=== PATIENT | male | born 1980 ===

== ENCOUNTER 2019-01-19 23:49 | Emergency (ER) | payer OTHER ==
[2019-01-20] VITALS: BP 119/65
[2019-01-20] MEDS ORDERED: Ketorolac 30 MG/ML SDV IM ONE (01:06)
[2019-01-20 01:09] LABS: ANION GAP 12.5; CHLORIDE,CL 103 mmol/L (101-111); SODIUM,NA 136 mmol/L (135-145)
[2019-01-20] MEDS ORDERED: Cyclobenzaprine 10 MG Tab PO ONE (01:09)
--- NOTE | 2019-01-20 01:27 | EDM.PDOC ---
ED HPI GENERAL MEDICAL PROBLEM - General Chief Complaint: Chest Pain Stated Complaint: RT RIB PAIN Time Seen by Provider: 01/20/19 00:10 Source of Information: Reports: Patient History Limitations: Reports: No Limitations - History of Present Illness INITIAL COMMENTS - FREE TEXT/NARRATIVE: ED with c/o pain to right lateral chest worse with movement, radiates around. Also pain right shoulder. Shoulder started yesterday, chest pain tonight. States he is doing a "push up challenge" Is up to 300 pushups today and was doing one handed pushups with left hand. No fever no cough. No sweating, no nausea. Right Chest Pain Score (Numeric/FACES): 4 - Related Data Allergies Allergy/AdvReac Type Severity Reaction Status Date / Time hydrocodone bitartrate Allergy Itching Verified 01/20/19 00:01 [From Lorcet (hydrocodone)] morphine Allergy Itching Verified 01/20/19 00:01 propoxyphene napsylate Allergy Itching Verified 01/20/19 00:01 [From Darvocet-N] Home Meds: Home Meds . [No Known Home Meds] 01/20/19 [History] Past Medical History HEENT History: Reports: Hard of Hearing Other HEENT History: has hearing aids but does not wear them Cardiovascular History: Reports: None Respiratory History: Reports: Other (See Below) Other Respiratory History: pneumonia Gastrointestinal History: Reports: GERD Genitourinary History: Reports: None Musculoskeletal History: Reports: Fracture Neurological History: Reports: None Psychiatric History: Reports: Emotional Problems Endocrine/Metabolic History: Reports: None Hematologic History: Reports: None Immunologic History: Reports: None Oncologic (Cancer) History: Reports: None Dermatologic History: Reports: None - Infectious Disease History Infectious Disease History: Reports: Chicken Pox, Shingles - Past Surgical History Head Surgeries/Procedures: Reports: None HEENT Surgical History: Reports: Adenoidectomy, Myringotomy w Tube(s), Tonsillectomy GI Surgical History: Reports: Hernia Repair/Other Musculoskeletal Surgical History: Reports: ORIF, Other (See Below) - History Comment History Comment: no etoh Social & Family History - Family History Family Medical History: Noncontributory - Tobacco Use Smoking Status *Q: Never Smoker - Caffeine Use Caffeine Use: Reports: Energy Drinks - Recreational Drug Use Recreational Drug Use: No ED ROS GENERAL - Review of Systems Review Of Systems: ROS reveals no pertinent complaints other than HPI. ED EXAM, GENERAL - Physical Exam Exam: See Below Exam Limited By: No Limitations General Appearance: Alert, Anxious, Mild Distress (with movement) Eye Exam: Bilateral Eye: EOMI Ears: Normal External Exam, Normal TMs Nose: Normal Inspection Throat/Mouth: Normal Inspection Head: Atraumatic, Normocephalic Neck: Normal Inspection, Full Range of Motion Respiratory/Chest: No Respiratory Distress, Lungs Clear, Normal Breath Sounds, Other (point tenderness right mid lateral chest, mild splinting with deep breathing. ). No: Crackles, Rhonchi, Wheezing Cardiovascular: Normal Peripheral Pulses, Regular Rate, Rhythm GI/Abdominal: Normal Bowel Sounds, Soft Back Exam: Full Range of Motion Extremities: Limited Range of Motion (slight decrease external rotation of right shoulder no deformity, mild crepitus of joint. ) Neurological: Alert, Oriented, CN II-XII Intact, Normal Cognition, Normal Gait Psychiatric: Normal Affect Skin Exam: Warm, Dry, Intact, Normal Color Course - Vital Signs Last Recorded V/S: Last Vital Signs Temp 98.0 F 01/19/19 23:57 Pulse 79 01/19/19 23:57 Resp 18 01/19/19 23:57 BP 119/65 01/19/19 23:57 Pulse Ox 94 L 01/19/19 23:57 - Orders/Labs/Meds Orders: Active Orders 24 hr Category Date Time Status EKG 12 Lead [EKG Documentation Completion] [RC] URGENT Care 01/20/19 00:37 Active CXR [Chest 1V Frontal] [CR] Urgent Exams 01/20/19 00:38 Taken Labs: Laboratory Tests 01/20/19 01/20/19 01/20/19 Range/Units 00:43 00:43 00:43 WBC 7.1 (5.0-10.0) 10^3/uL RBC 5.25 (4.6-6.2) 10^6/uL Hgb 15.7 (14.0-18.0) g/dL Hct 45.9 (40.0-54.0) % MCV 87.4 (80-100) fL MCH 29.9 (27.0-34.0) pg MCHC 34.2 (33.0-35.0) g/dL Plt Count 240 (150-450) 10^3/uL Neut % (Auto) 44.0 (42.2-75.2) % Lymph % (Auto) 36.3 (20.5-50.1) % [place] % (Auto) 15.8 H (2-8) % Eos % (Auto) 2.1 (1.0-3.0) % Baso % (Auto) 1.8 H (0.0-1.0) % D-Dimer, Quantitative < 100 (0-400) ng/mL Sodium 136 (135-145) mmol/L Potassium 3.5 L (3.6-5.0) mmol/L Chloride 103 (101-111) mmol/L Carbon Dioxide 24.0 (21.0-31.0) mmol/L Anion Gap 12.5 BUN 13 (7-18) mg/dL Creatinine 1.0 (0.6-1.3) mg/dL Est Cr Clr Drug Dosing 98.19 mL/min Estimated GFR (MDRD) > 60 BUN/Creatinine Ratio 13.00 Glucose 106 H (74-105) mg/dL Calcium 8.5 (8.4-10.2) mg/dl Total Bilirubin 0.7 (0.2-1.0) mg/dL AST 25 (10-42) IU/L ALT 39 (10-60) IU/L Alkaline Phosphatase 58 (42-121) IU/L Troponin I < 0.02 (0.00-0.02) ng/ml Total Protein 6.4 L (6.7-8.2) g/dl Albumin 3.8 (3.2-5.5) g/dl Globulin 2.6 Albumin/Globulin Ratio 1.46 Meds: Medications Discontinued Medications Generic Name Dose Route Start Last Admin Trade Name Freq PRN Reason Stop Dose Admin Cyclobenzaprine HCl 10 mg 01/20/19 01:09 01/20/19 01:14 Flexeril PO 01/20/19 01:10 10 mg ONETIME ONE Administration Ketorolac Tromethamine 30 mg 01/20/19 01:06 01/20/19 01:14 Toradol IM 01/20/19 01:07 30 mg ONETIME ONE Administration - Radiology Interpretation Free Text/Narrative:: [facility] Final Radiology Report Call: [phone] assistance Online chat: [email or web address] Name: NELLY QUINTANA Age: 38Years M Date: 01/20/2019 SSN: -- : [id number] Study: XR CHEST 1 VIEW Requesting Physician: DIONE ALVARENGA Images: 1 Addl Studies: Provided Clinical History: Contrast: Contrast Medium: Contrast Amount: Contrast Method: CONFIDENTIALITY STATEMENT This report is intended only for use by the referring physician, and only in accordance with law. If you received this in error, call [phone]. Page 1 of 1 EXAM: XR Chest, 1 View EXAM DATE/TIME: 01/20/2019 12:48 AM CLINICAL HISTORY: 38 years old, male; Signs and symptoms; Other: Right chest pain TECHNIQUE: XR of the chest, 1 view. COMPARISON: No relevant prior studies available. FINDINGS: Lungs: Unremarkable. No consolidation. Pleural space: Unremarkable. No pleural effusion. No pneumothorax. Heart/Mediastinum: Unremarkable. No cardiomegaly. Bones/joints: Unremarkable. IMPRESSION: No acute findings. Thank you for allowing us to participate in the care of your patient. Dictated and Authenticated by: Alfred Castro MD 01/20/2019 12:53 AM Central Time ([place] & [place]) Departure - Departure Time of Disposition: 01:29 Disposition: Home, Self-Care 01 Condition: Good Clinical Impression: Costochondritis, Muscle spasm Instructions: Costochondritis Forms: ED Department Discharge Additional Instructions: alternate tylenol 650mg and ibuprofen 600mg every 4 hours as needed for discomfort flexeril 10mg one half to one twice daily as needed for spasm clinic follow up next week if not improving urgent follow up if dizzy, increased pain, shortness of reat deep breathing exercises every hour while awake - My Orders Last 24 Hours: My Active Orders 01/20/19 00:37 EKG 12 Lead [EKG Documentation Completion] [RC] URGENT 01/20/19 00:38 CXR [Chest 1V Frontal] [CR] Urgent - Assessment/Plan Last 24 Hours: My Active Orders 01/20/19 00:37 EKG 12 Lead [EKG Documentation Completion] [RC] URGENT 01/20/19 00:38 CXR [Chest 1V Frontal] [CR] Urgent
== END 2019-01-20 01:46 | disposition home or self-care (01) ==
LOC: DL.ED 23:49
DX: M94.0 Chondrocostal junction syndrome [Tietze] (principal); M62.838 Other muscle spasm; Z88.6 Allergy status to analgesic agent; Z88.5 Allergy status to narcotic agent; Z88.8 Allergy status to other drugs, medicaments and biological substances
CPT/HCPCS: 36415; 71045; 80053; 84484; 85025; 85379; 93005; 96372; 99284; A9270; J1885